=== PATIENT | male | born 1990 | race African-American/Black ===

== ENCOUNTER 2020-10-24 22:11 | Emergency (ER) | payer OTHER ==
[~2020-10-24] VITALS: Ht 182.9 cm; Wt 88.5 kg
[2020-10-24 23:52] LABS: ABSOLUTE NEUTROPHILS 4.4 thou/uL (1.4-8.2); BASOPHILS 0.7 % (0.0-2.0); EOSINOPHILS 1.6 % (0.0-3.0); HEMATOCRIT 43.5 % (42.0-52.0); HEMOGLOBIN 14.1 gm/dL (14.0-18.0); LYMPHOCYTES 22.9 % (24.0-44.0); MCH 29.1 pg (26.0-34.0); MCHC 32.5 g/dL (28.0-37.0); MCV 89.5 fL (80.0-100.0); MONOCYTES 6.6 % (1.0-8.0); PLATELET COUNT 250 thou/uL (150-400); POLYS 68.2 % (36.0-66.0); RBC 4.86 mil/uL (4.50-6.00); RDW 13.4 % (10.5-14.5); WBC 6.5 thou/uL (4.0-11.0)
[2020-10-25 00:07] LABS: ANION GAP 6 mmol/L (7-16); BUN 19 mg/dL (7-18); CALCIUM 9.4 mg/dL (8.5-10.1); CHLORIDE 105 mmol/L (98-107); CO2 29 mmol/L (21-32); CREATININE 1.3 mg/dL (0.7-1.3); GLUCOSE 92 mg/dL (74-106); POTASSIUM 3.8 mmol/L (3.5-5.1); SODIUM 140 mmol/L (136-145)
[2020-10-25 00:12] LABS: SGOT 17 U/L (15-37); SGPT 50 U/L (16-63); TOTAL BILIRUBIN 0.1 mg/dL (0.2-1.0); TOTAL PROTEIN 7.8 g/dL (6.4-8.2); TROPONIN-I <0.06 ng/mL (<0.06)
[2020-10-25] MEDS ORDERED: PEPCID20 MG PO (01:25)
[2020-10-25 01:46] VITALS: BP 138/102
--- NOTE | 2020-10-25 15:38 | EKG ---
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[facility] : 1990 Requested By: Dulce Silva Order Number: [id number] MD: Fam Gilliam Measurements Intervals [place] Rate: 102 P: 25 DC: 129 QRS: 5 QRSD: 88 T: 41 QT: 313 QTc: 408 Interpretive Statements Sinus tachycardia Borderline ST elevation, anterior leads No previous ECG available for comparison Electronically Signed On 10-25-2020 15:38:37 [facility] [employer] by Fam Gilliam [email or web address] <ELECTRONICALLY SIGNED> By: Fam Gilliam MD, [facility] 10/25/20 [id number] Fam Gilliam MD, FACC /EPI
== END 2020-10-25 01:47 | disposition home or self-care (01) ==
LOC: ER 22:11
PROVIDERS: Emergency Medicine
DX: K21.9 Gastro-esophageal reflux disease without esophagitis (principal); K29.70 Gastritis, unspecified, without bleeding